=== PATIENT | female | born 1985 | race Caucasian/White ===

== ENCOUNTER 2018-12-15 18:49 | Emergency (ER) | payer MEDICARE, MEDICAID ==
[~2018-12-15] VITALS: Ht 172.7 cm; Wt 129.7 kg
--- NOTE | 2018-12-15 19:10 | NUR ---
PT DANIELITO, FRIEND CALLED 911, SAYING SHE TOOK A LOT OF MEDICATIONS. PT VERBALIZED SHE TOOK THE MEDICATIONS BECAUSE SHE WAS SAD. PT DENIES ANY SI. PT IS LETHARGIC, VERBALLY RESPONSIVE, VSS, BREATHING EVEN AND UNLABORED ON ROOM AIR. CONNECTED TO THE MONITOR. IV LINE ESTABLISHED 20G RH. EKG TAKEN AT BEDSIDE. BLOOD DRAWN AND SENT TO LAB
--- NOTE | 2018-12-15 19:13 | NUR ---
PER PATIENT AND PER PARAMEDICS REPORT, PATIENT TOOK 6 TABLETS OF BUPROPION 150MG, 8 TABLETS OF GABAPENTIN 600MG 8 TABLETS OF TRAZODONE 100MG, 4 TABLETS OF LEXAPRO 20MG 4 TABLETS OF LAMICTAL 200MG AND 4 TABLETS OF PROPANOLOL 20MG
--- NOTE | 2018-12-15 19:22 | NUR ---
PATIENT'S MEDICATION PRESENTED: BUPROPION 150MG FILLED ON 11/22/18 #90 TABS, 12 TABS LEFT. LAMOTRIGINE 200MG FILLED ON 12/04/18 #30, 15 TABS LEFT. ESCITALOPRAM 10MG FILLED ON 12/04/18 #30, 19 TABS LEFT. ESCITALOPRAM 20MG FILLED ON 12/04/18 #30, 19 TABS LEFT. TRAZODONE 100MG FILLED ON 12/04/18 #60, 31 TABS LEFT. PROPANOLOL 20MG FILLED ON 12/04/18 #90, 136 TABS LEFT. GABAPENTIN 600MG FILLED ON 12/03/18 #120, 137 TABS.
[2018-12-15 19:29] LABS: BASOPHILS # (AUTO) 0.1 /CMM (0.0-0.2); EOSINOPHILS % (AUTO) 2.5 % (0.0-6.0); HEMATOCRIT 39 % (33-45); HEMOGLOBIN 13.1 g/dL (11.5-14.8); LYMPHOCYTES # (AUTO) 1.5 /CMM (0.8-4.8); LYMPHOCYTES % (AUTO) 27.7 % (20.0-44.0); MEAN CORPUSCULAR HGB CONC 34 g/dl (31.0-36.0); MEAN CORPUSCULAR VOLUME 90 fL (82-100); MONOCYTES # (AUTO) 0.4 /CMM (0.1-1.30); MONOCYTES % (AUTO) 6.5 % (2.0-12.0); NEUTROPHILS # (AUTO) 3.5 /CMM (1.8-8.9); NEUTROPHILS % (AUTO) 62.3 % (43.0-81.0); PLATELET COUNT (AUTO) 292 /CMM (150-450); RED BLOOD CELL COUNT(AUTO) 4.33 MIL/uL (4.0-5.2); WHITE BLOOD COUNT (AUTO) 5.6 K/uL (4.3-11.0)
[2018-12-15] MEDS ORDERED: IV NS 0.9% 1,000 ML BAG IV ONE (19:30)
[2018-12-15 19:34] LABS: CALCIUM, SERUM 8.8 mg/dL (8.5-10.1); CARBON DIOXIDE 28 mmol/L (21-32); CHLORIDE 104 mmol/L (98-107); GLUCOSE 94 mg/dL (74-106); POTASSIUM 4.4 mmol/L (3.5-5.1); SODIUM SERUM 138 mmol/L (136-145); UREA NITROGEN, BLOOD 7 mg/dL (7-18)
[2018-12-15 19:41] LABS: ACETAMINOPHEN 0 ug/ml (10-30); ALANINE AMINOTRANSFERASE 24 U/L (12-78); ALBUMIN 3.8 g/dL (3.4-5.0); ALCOHOL, BLOOD < 3 mg/dL (0-0); ALKALINE PHOSPHATASE 91 U/L (46-116); ASPARTATE AMINOTRANSFERASE 19 U/L (15-37); BILIRUBIN,TOTAL 0.5 mg/dL (0.2-1.0); TOTAL PROTEIN, SERUM 6.8 g/dL (6.4-8.2)
--- NOTE | 2018-12-15 19:50 | NUR ---
URINE COLLECTED AND SENT TO LAB
[2018-12-15 20:00] LABS: APPEARANCE,URINE Clear (CLEAR); BILIRUBIN,URINE Negative (NEGATIVE); BLOOD, URINE Negative Ery/uL (NEGATIVE); COLOR,URINE Yellow (YELLOW); KETONES,URINE Negative (NEGATIVE); LEUKOCYTE ESTERASE ,URINE Negative (NEGATIVE); NITRITE, URINE Negative (NEGATIVE); PROTEIN,URINE Negative (NEGATIVE); UGLUCOSE Negative (NEGATIVE); UROBILINOGEN,URINE 0.2 EU/dL (0.2)
--- NOTE | 2018-12-15 20:30 | NUR ---
CALLED [facility] FOR PSYCH EVAL
--- NOTE | 2018-12-15 21:00 | NUR ---
CRISIS TEAM MARCE DUKE AT BEDSIDE FOR EVAL
--- NOTE | 2018-12-15 22:05 | NUR ---
PT ACCIDENTALLY D/C IV SITE. ER AWARE. PER VERBAL MD ORDER, NO NEED FOR NEW IV SITE Addendum: 12/15/18 at 2352 by IMTIAZ IV removed. Catheter intact and site benign. Pressure and 4x4 applied to site. No bleeding noted.
--- NOTE | 2018-12-15 22:40 | NUR ---
PT ACCEPTED AT [facility] ACCEPTING MD: DR. TREJO [address], [address] NUMBER FOR REPORT: [phone] [address] [place] [address]
--- NOTE | 2018-12-15 22:55 | NUR ---
CALLED [facility] FOR TRANSPORTATION. ETA [phone]
--- NOTE | 2018-12-15 23:37 | NUR ---
GAVE REPORT TO MARCE NGUYEN FROM [facility] FOR [place]
[2018-12-15 23:42] VITALS: BP 127/94
--- NOTE | 2018-12-15 23:49 | NUR ---
GAVE REPORT TO [facility] [address] FOR TRANSPORTATION [place]
== END 2018-12-15 23:53 | disposition short-term general hospital (02) ==
LOC: ER 18:57
DX: F32.9 Major depressive disorder, single episode, unspecified (principal); E66.01 Morbid (severe) obesity due to excess calories; F43.10 Post-traumatic stress disorder, unspecified; R94.31 Abnormal electrocardiogram [ECG] [EKG]; Z98.890 Other specified postprocedural states; Z88.0 Allergy status to penicillin; Z68.41 Body mass index [BMI] 40.0-44.9, adult
CPT/HCPCS: 36415; 80048; 80076; 80305; 80307; 80329; 81001; 84702; 85025; 93005; 99285; G0480; J7030; 81000-TC